=== PATIENT | female | born 1980 | race Two or more races ===

== ENCOUNTER 2020-03-11 14:40 | Emergency (ER) | payer BC ==
--- NOTE | 2020-03-11 15:07 | EDM.PDOC ---
ED HPI GENERAL MEDICAL PROBLEM - General Chief Complaint: Cardiovascular Problem Stated Complaint: DIZZY Time Seen by Provider: 03/11/20 14:50 Source of Information: Reports: Patient History Limitations: Reports: No Limitations - History of Present Illness INITIAL COMMENTS - FREE TEXT/NARRATIVE: states she has hypertension did not take medication for 8 months due to weight loss diet . recently restarted medication and today noted BP elevates and , got dizzy , doubled her does of BP medication and decided to come in and be seen. Still has dizziness but BP normal felt panicked and come in , currently BP staying below 140/90 Onset: Today Onset Date: 03/11/20 Duration: Improving, Other Location: Reports: Generalized Associated Symptoms: Reports: Other (palpitations, seemed to have resolved) Treatments PSYCHOLOGIST PERSONNEL: Reports: Other (see below) (took double dos e of BP medication) - Related Data Allergies Allergy/AdvReac Type Severity Reaction Status Date / Time No Known Allergies Allergy Verified 03/11/20 20:08 Home Meds: Home Meds Citalopram [Citalopram HBr] 40 mg PO DAILY 03/11/20 [History] Losartan [Cozaar] 50 mg PO DAILY #30 tab 03/11/20 [Rx] hydrOXYzine HCL [hydrOXYzine] 25 mg PO DAILY 03/11/20 [History] traMADol HCl [Tramadol HCl] 510 mg PO BID PRN 03/11/20 [History] ED ROS GENERAL - Review of Systems Review Of Systems: See Below Constitutional: Denies: Chills, Malaise, Weakness HEENT: Reports: No Symptoms Respiratory: Denies: Shortness of Breath, Pleuritic Chest Pain, Cough Cardiovascular: Reports: Chest Pain (retrosternal) Endocrine: Denies: Fatigue GI/Abdominal: Reports: No Symptoms Musculoskeletal: Reports: No Symptoms Skin: Reports: No Symptoms Neurological: Reports: Dizziness Psychiatric: Reports: No Symptoms Hematologic/Lymphatic: Reports: No Symptoms Immunologic: Reports: No Symptoms ED EXAM, GENERAL - Physical Exam Exam: See Below Exam Limited By: No Limitations General Appearance: Alert, WD/WN, No Apparent Distress Eye Exam: Bilateral Eye: EOMI Ears: Normal External Exam Nose: Normal Inspection Throat/Mouth: Normal Oropharynx Head: Atraumatic, Normocephalic Neck: Supple, Non-Tender Respiratory/Chest: No Respiratory Distress, Lungs Clear GI/Abdominal: Soft, Non-Tender, No Distention Back Exam: Normal Inspection, Full Range of Motion Extremities: Normal Inspection, Normal Range of Motion, No Pedal Edema Neurological: Alert, Oriented, CN II-XII Intact Psychiatric: Normal Affect Skin Exam: Warm, Dry, Intact Lymphatic: No Adenopathy #1 Interpretation EKG Date: 03/11/20 Rhythm: NSR [place]: Normal P-Wave: Present QRS: Normal ST-T: Normal QT: Normal Comparison: NA - No Prior EKG Course - Vital Signs Last Recorded V/S: Last Vital Signs Temp 36.6 C 03/11/20 20:09 Pulse 75 03/11/20 20:09 Resp 18 03/11/20 20:09 BP 124/95 H 03/11/20 20:09 Pulse Ox 100 03/11/20 20:09 - Orders/Labs/Meds Orders: Active Orders 24 hr Category Date Time Status EKG 12 Lead [EK] Routine Ther 03/11/20 15:03 Ordered Labs: Laboratory Tests 03/11/20 Range/Units 15:10 Sodium 142 (135-145) mmol/L Potassium 4.0 (3.5-5.3) mmol/L Chloride 104 (100-110) mmol/L Carbon Dioxide 28 (21-32) mmol/L BUN 10 (7-18) mg/dL Creatinine 0.7 (0.55-1.02) mg/dL Est Cr Clr Drug Dosing TNP Estimated GFR (MDRD) > 60 (>60) BUN/Creatinine Ratio 14.3 (9-20) Glucose 98 (80-116) mg/dL Calcium 9.2 (8.6-10.2) mg/dL - Re-Assessments/Exams Free Text/Narrative Re-Assessment/Exam: 03/11/20 16:37 pt had persistent normal BP throughout her stay in the ER had no complaints no longer dizzy Pt encouraged to use BP monitor at home and FU with her PCP. She should avoid mediation that is not prescribed her doctor Departure - Departure Time of Disposition: 16:45 Disposition: Home, Self-Care 01 Condition: Good Clinical Impression: Dizziness, Hypertension Prescriptions: Losartan [Cozaar] 50 mg PO DAILY #30 tab Instructions: Hypertension, Adult, [id number], Preventing Hypertension, Dizziness, [id number], Managing Your Hypertension Referrals: Basia Hamilton NP [Primary Care Provider] - Forms: ED Department Discharge Additional Instructions: 1) Loose weight : at least 10 LB 2) No salt intake 3) make a follow up appointment with your PCP - My Orders Last 24 Hours: My Active Orders 03/11/20 15:03 EKG 12 Lead [EK] Routine - Assessment/Plan Last 24 Hours: My Active Orders 03/11/20 15:03 EKG 12 Lead [EK] Routine
== END 2020-03-11 16:45 | disposition home or self-care (01) ==
LOC: FB.ED 14:40
DX: I10 Essential (primary) hypertension (principal); R07.2 Precordial pain
CPT/HCPCS: 36415; 80048; 93005; 99284-25

== ENCOUNTER 2024-11-01 07:26 | Day surgery (SDC) | payer BC, OTHER ==
[2024-11-01] MEDS ORDERED: Propofol 200 MG/20 ML SDV IV ONE (07:27)
[2024-11-01] MEDS ORDERED: Ketamine 500 mg/10 ML MDV IV ONE (07:27)
[2024-11-01] MEDS ORDERED: Midazolam 1 MG/ML 2 ML SDV IV ONE (07:27)
[2024-11-01] MEDS ORDERED: Sodium Chloride 0.9% 10 ML Syringe FLUSH PRN (07:45)
[2024-11-01] MEDS: Lactated Ringers 1,000 ML IV SCH (07:58)
[2024-11-02 21:59] LABS: LACTOFERRIN,FECAL BY ELISA Negative (Negative)
[2024-11-04 01:20] LABS: ADENOVIRUS 40/41 PCR Not Detected; ASTROVIRUS PCR Not Detected; CRYPTOSPORIDIUM PCR Not Detected; CYCLOSPORA CAYETANENSIS PCR Not Detected; ENTAMOEBA HISTOLYTICA PCR Not Detected; ENTEROAGGREGATIVE E. COLI PCR Not Detected; ENTEROPATHOGENIC E. COLI PCR Not Detected; ENTEROTOXIGENIC E. COLI PCR Not Detected; GIARDIA LAMBLIA PCR Not Detected; NOROVIRUS GI/GII PCR Not Detected; PLESIOMONAS SHIGELLOIDES PCR Not Detected; ROTAVIRUS A PCR Not Detected; SALMONELLA PCR Not Detected; SAPOVIRUS PCR Not Detected; SHIG/ENTEROINVASIVE E COLI PCR Not Detected; SHIGA TOXIN-PRODUC E. COLI PCR Not Detected; VIBRIO CHOLERAE PCR Not Detected; VIBRIO PCR Not Detected; YERSINIA ENTEROCOLITICA PCR Not Detected
== END 2024-11-01 10:18 | disposition home or self-care (01) ==
LOC: FB.SDS 07:26
PROVIDERS: ATTEND Surgery
DX: K57.30 Diverticulosis of large intestine without perforation or abscess without bleeding (principal); K52.9 Noninfective gastroenteritis and colitis, unspecified; I10 Essential (primary) hypertension; E66.9 Obesity, unspecified; Z88.8 Allergy status to other drugs, medicaments and biological substances; Z68.35 Body mass index [BMI] 35.0-35.9, adult; Z79.84 Long term (current) use of oral hypoglycemic drugs; Z87.891 Personal history of nicotine dependence; Z79.899 Other long term (current) drug therapy
CPT/HCPCS: 00811; 83630; 87507; 88305; A9270-GY; J2003; J2250; J2704; J3490; J7120

== ENCOUNTER 2025-01-06 17:49 | Emergency (ER) | payer SELFPAY ==
[2025-01-06] MEDS ORDERED: Acetaminophen/HYDROcodone 325-5 MG Tab PO ONE (17:50)
== END 2025-01-06 19:20 | disposition home or self-care (01) ==
LOC: FB.ED 17:49
DX: K04.7 Periapical abscess without sinus (principal); I10 Essential (primary) hypertension; E66.9 Obesity, unspecified; J44.89 Other specified chronic obstructive pulmonary disease; F17.200 Nicotine dependence, unspecified, uncomplicated; Z90.49 Acquired absence of other specified parts of digestive tract; Z90.710 Acquired absence of both cervix and uterus; Z79.899 Other long term (current) drug therapy; Z88.8 Allergy status to other drugs, medicaments and biological substances; Z68.35 Body mass index [BMI] 35.0-35.9, adult
CPT/HCPCS: 99282; A9270-GY